=== PATIENT | female | born 1980 | race Caucasian/White ===

== ENCOUNTER → 2018-03-06 | Outpatient (CLI) | payer OTHER ==
[~2018-03-06] MED LIST: ACYC-50 PO; ALBU8.5H IH; BUTA1CAP51 PO; CEPH-13 PO; CETI10CA8 PO; CLON0.5T66 PO; FOLI0.8T35 PO; HYDR2TAB4 PO; IBUP-1671 PO; KET10 PO; LEVO25TA57 PO; Mirena IUD; OXYC-373 PO; OXYC-865 PO; SERT-173 PO
--- NOTE | 2018-03-06 10:57 | RADIOLOGY IMAGING REPORT ---
FACILITY: [facility] - [place] PATIENT NAME: Antonieta Lackey : 1980 MR: [id number] V: [id number] EXAM DATE: ORDERING PHYSICIAN: EDMUNDO KENDRICK TECHNOLOGIST: Location: [facility] Patient: Antonieta Lackey : 1980 Visit/Account:[id number] Date of Sevice: 03/06/2018 Exam type: CHEST PA AND LAT History: Shortness of breath x1 month, asthma, former smoker Comparison: None. Findings: The lungs are free of acute effusions, infiltrates or edema. There is no evidence of a pneumothorax or pneumomediastinum. Cardiac silhouette is normal in size. The trachea is midline. IMPRESSION: 1. No acute heart pulmonary process is seen Report Dictated By: Clair Lorenzo MD at 03/06/2018 10:51 AM Report E-Signed By: Clair Lorenzo MD at 03/06/2018 10:52 AM WSN:[email or web address]
== END ==
LOC: LAB 10:22
PROVIDERS: ATTEND Physician Assistant
DX: R05 Cough (principal)
CPT/HCPCS: 71046